=== PATIENT | male | born 1985 | race Two or more races ===

== ENCOUNTER 2018-08-06 09:36 | Emergency (ER) | payer SELFPAY ==
[~2018-08-06] VITALS: Ht 188 cm; Wt 97.5 kg
[2018-08-06 09:36] VITALS: BP 143/80
[2018-08-06] MEDS ORDERED: MECLIZINE HCL 12.5 MG TABLET PO ONE (10:30)
[2018-08-06] MEDS ORDERED: LORAZEPAM 1 MG TABLET PO ONE (10:30)
[2018-08-06] MEDS ORDERED: LORAZEPAM 1 MG TABLET ONE (10:31)
[2018-08-06] MEDS ORDERED: MECLIZINE HCL 25 MG TABLET ONE (10:32)
== END 2018-08-06 11:11 | disposition home or self-care (01) ==
LOC: ER 09:40
DX: R42 Dizziness and giddiness (principal)
CPT/HCPCS: 99283; A4606; J8597